=== PATIENT | female | born 1955 | race Caucasian/White ===

== ENCOUNTER 2020-05-02 09:54 | Outpatient (CLI) | payer OTHER, SELFPAY ==
[2020-05-02 10:59] LABS: Alanine Aminotransferase 31 U/L (4-35); Albumin Level 4.3 g/dL (3.5-5.1); Alkaline Phosphatase 95 U/L (38-126); Anion Gap 3 mmol/L (8-16); Aspartate Amino Transferase 28 U/L (14-36); Bilirubin,Total 0.7 mg/dL (0.2-1.3); Blood Urea Nitrogen 17 mg/dL (7-17); Calcium 9.2 mg/dL (8.4-10.2); Carbon Dioxide 34 mmol/L (22-30); Chloride 102 mmol/L (98-107); Cholesterol 203 mg/dL (0-200); Estimated Glomerular Filt Rate > 60; Glucose 140 mg/dL (65-105); HDL Direct 46 mg/dL; Potassium 4.2 mmol/L (3.4-5.0); Sodium 139 mmol/L (137-145); Triglycerides 269 mg/dL (<150)
[2020-05-02 11:10] LABS: LDL Cholesterol Direct 115 mg/dL
[2020-05-02 11:27] LABS: Thyroid Stimulating Hormone 0.786 uIU/mL (0.465-4.680)
== END 2020-05-02 09:55 | disposition home or self-care (01) ==
LOC: ANHLAB 09:56
PROVIDERS: PCP Internal Medicine; Visit Provider Internal Medicine
DX: E03.9 Hypothyroidism, unspecified (principal); Z51.81 Encounter for therapeutic drug level monitoring; Z79.899 Other long term (current) drug therapy; E78.5 Hyperlipidemia, unspecified; I10 Essential (primary) hypertension
CPT/HCPCS: 36415; 80053; 80061; 84443

== ENCOUNTER → 2020-07-03 15:09 | Outpatient (CLI) | payer OTHER, SELFPAY ==
--- NOTE | ~2020-07-03 | XR_ITS ---
XR knee LT 3V 07/03/2020 15:29 Indication: Left knee pain Procedure: 3 views left knee Comparison: No prior studies for comparison. Findings: Small joint effusion. No fracture or traumatic malalignment. No significant joint space sangeetha rowing. No foreign bodies. Impression: 1: Small joint effusion. Reviewed, dictated and finalized at location B. 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
== END ==
PROVIDERS: PCP Internal Medicine; Visit Provider Internal Medicine
DX: M25.462 Effusion, left knee (principal)
CPT/HCPCS: 73562

== ENCOUNTER 2020-08-07 11:00 | Outpatient (RCR) | payer OTHER, SELFPAY ==
--- NOTE | 2020-07-04 13:42 | PTOPEVAL ---
Thank you for referring Cailin Connor to [facility].? The patient is scheduled to be seen for therapy? 2 x/week for 5 weeks. Please review, sign, date and return this plan of care ERIN. I agree with and certify that the following plan of care is medically necessary. Referring Physician Date Attending Provider: Jonathan Garber DO Referring Provider: Jonathan Garber DO Evaluation Information Problem Diagnosis left knee pain Onset 3 wks Additional Evaluation Detail left last 2 digits numbness since Feb 2020 nerve conduction test sched for 07/07/20 Subjective Information She was going down the steps 3 Query Text:As Reported By Patient/ wks ago when she had knee Family pain. She is limited with walking longer distances, negotiating steps, and squating. She is unable to kneel on the knee due to pain. She c/o pain and sensation of knee giving out with descending steps. She does not perform a cardio program since COVID. She would do cardio of TM and eliptical, min upper body resistance activities. She would also perform some general stretching. She will take over the counter medication if needed. Denies use of ice or heat. 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 She notices she crosses her legs a lot. Diagnostic Tests X-Rays For This Problem Yes: mild fluid Pain Assessment Left Knee(s) Reported Pain Level 1 Pain Description Aching,Sharp Pain Frequency Continuous Lowest Pain Intensity 1 Greatest Pain Intensity 8 Lower Extremity Range of Motion Left Knee Flexion Range of Motion - Active 130 Knee Extension Range of Motion - Active -8 Query Text: Knee Range of Motion Comments right knee ext: -2 dg decreased left patellar inferior glide Lower Extremity Muscle Strength Testing Hip Strength Right Hip Flexion Strength 5 Normal Hip Extension Strength 4- Good - Hip Abduction Strength 3+ Fair + Left Hip Flexion Strength 5 Normal Hip Extension Strength
--- NOTE | 2020-08-04 10:13 | PCPTNOTE ---
Patient called & cancelled scheduled appointment this date due to not feeling well.
--- NOTE | 2020-08-07 11:49 | PTOPEVAL ---
Thank you for referring Cailin Connor to [facility].?Cailin has been seen for 10 therapy visits to address her leg impairments. She demonstrates improved pain, strength and tolerance with functional task. She has achieved her therapy goals at this time. She performs her home program indep and has returned to the gym for a fitness program.She will D/C from therapy services at this time. Please review, sign, date and return this discharge note ERIN. I agree with and certify that the following plan of care is medically necessary. Referring Physician Date Attending Provider: Jonathan Garber DO Referring Provider: Jonathan Garber DO Physical Therapy Discharge Note Diagnosis left knee pain Onset 3 wks Subjective Information She reports improved tolerance Query Text:As Reported By Patient/ with steps with only slight Family pain descending steps. She reports improved ability to tolerate squating, carrying or walking with only slight discomfort at time. She is now able to tolerate kneeling on the knee. She is not taking any over the counter medication for pain. She denies c/o sensation of knee giving out with descending steps. She has returned to the gym. She walked on the TM for 40 minutes. Pain Assessment Left Knee(s) Reported Pain Level 0 Pain Frequency Intermittent Lowest Pain Intensity 0 Greatest Pain Intensity 1 Lower Extremity Range of Motion Knee Range of Motion Left Knee Flexion Range of Motion - Active 132 Knee Extension Range of Motion - Active -6 Query Text: Knee Range of Motion Comments right knee ext: -2 dg decreased left patellar inferior/superior glide Lower Extremity Muscle Strength Testing Hip Strength Right Hip Flexion Strength 5 Normal Hip Extension Strength 4+ Good + Hip Abduction Strength 4- Good - Left Hip Flexion Strength 5 Normal Hip Extension Strength 4+ Good + Hip Abduction Strength 3+ Fair + Knee Strength Right Knee Flexion Strength 5 Normal Knee Extension Strength 5 Normal Left Knee Flexion Strength 5 Normal Knee Extension Strength 5 Normal Ankle Strength Bilateral Ankle Dorsiflexion Strength 5 Normal Ankle Plantarflexion Strength 4 Good Muscle Length Testing Two-Joint Hip Flexor Shortened Muscles Short (R) Iliopsoas,Short (L)
== END 2020-08-08 10:05 | disposition home or self-care (01) ==
LOC: ANHPT 11:00
PROVIDERS: PCP Internal Medicine; Referring Provider Internal Medicine; Visit Provider Internal Medicine
DX: M25.562 Pain in left knee (principal)
CPT/HCPCS: 97110; 97112; 97161

== ENCOUNTER 2022-10-13 00:06 | Day surgery (SDC) | payer MEDICARE, OTHER, SELFPAY ==
[2022-09-01 13:28] VITALS: BMI 23.5
[2022-09-30 10:40] VITALS: BMI 23.5
--- NOTE | 2022-10-12 16:26 | PM.HPGS ---
History of Present Illness History of Present Illness Consent: Risks, benefits, and alternatives have been discussed and questions answered. Patient agrees to proceed with procedure. Chief complaint: hx colon polyps Narrative: Cailin Connor is a 67 year old female For colon cancer screening. She has history of polyps. She had an unremarkable colonoscopy in 2008 Review of Systems Review of Systems: All systems reviewed & are unremarkable except as noted in HPI and below PMFSH Past Medical History Medical History Acquired hypothyroidism Benign essential hypertension Broken ankle GERD (gastroesophageal reflux disease) History of Graves' disease Hx of cold sores Hyperglycemia Impaired glucose tolerance Other and unspecified hyperlipidemia Postmenopausal Screening for breast cancer Surgical History Surgical History History of endometrial ablation Hx of thyroidectomy Family History Family History Father Cerebrovascular accident Acute myocardial infarction Mother Cerebrovascular accident Sibling Pancreas cancer Social History Social History Smoking packs per day: 0.5 Smoking cigarettes per day: 10.0 Years smoked: 40 Smoking pack-years: 20.00 Smoking status: Never smoker Second hand tobacco smoke exposure: No Smoking end date: 05/23/13 Alcohol intake: current Drinks per week: 5 Alcohol use details: social Substance use: never Substance use type: does not use Lack of Transportation: No Lack of Food: Never True Current Housing: I Have Housing Concerned About Future Housing: No Difficulty Paying Gas/Electric Bills: No Difficulty Paying for Meds: No Currently Unemployed: No Education: Trade/Vocational Certificate Difficulty w/ Childcare or Family Care: No Living arrangements: with family Gender identity (if verbalized by the patient): Female Spiritual care concerns: No Meds Home Medications and Allergies Home Medications Medication Instructions Recorded Confirmed Type atorvastatin 20 mg tablet 20 mg PO DAILY #90 tabs 05/04/22 09/01/22 Rx levothyroxine 75 mcg tablet 75 mcg PO DAILY #90 tabs 07/21/22 09/01/22 Rx valacyclovir 1 gram tablet See Rx Instructions .Route 08/10/22 09/01/22 Rx .COMPLEX #30 tabs cholecalciferol (vitamin D3) 50 250 mcg PO DAILY 09/01/22 09/01/22 History mcg (2,000 unit) tablet fluticasone propionate 50 2 spray intranasal DAILY PRN 09/01/22 09/01/22 History mcg/actuation nasal Allergy Symptoms spray,suspension (Flonase Allergy Relief) lisinopril 10 1 tablet PO DAILY 09/01/22 09/01/22 History mg-hydrochlorothiazide 12.5 mg tablet venlafaxine 150 mg 150 mg PO DAILY 09/01/22 09/01/22 History capsule,extended release 24 hr ketoconazole 2 % shampoo 1 applic topical 3XW scalp 10/08/22 10/08/22 Rx pruritis #120 mL Allergies Allergy/AdvReac Type Severity Reaction Status Date / Time No Known Allergies Allergy Verified 10/13/22 07:14 Exam Const: General: alert Orientation/consciousness: patient oriented x3 Resp: Auscultation: clear to auscultation bilaterally Cardio: Rhythm: regular rhythm GI: GI Palp: Yes Soft to palpation and No Tenderness to palpation present (GI) Neuro: General: patient oriented x3 Assessment and Plan Assessment and plan (1) Colon cancer screening: Code(s): Z12.11 - Encounter for screening for malignant neoplasm of colon Status: Acute Assessment and Plan: Colonoscopy with possible biopsy or polypectomy or cautery or injection of substances.
[2022-10-13 07:16] VITALS: BP 113/58; PULSE 78; RESP 20; TEMP 36.1; O2SAT 97
[2022-10-13] MEDS: LACTATED RINGERS 1,000 ML 150 ML IV CONT (07:28)
--- NOTE | 2022-10-13 08:13 | WPDANESEPPF ---
Anes - Initial Pre Proc Eval Procedure: Operation Date: 10/13/22 08:30 Proposed Procedures p Colonoscopy - Manoj Dick MD Date/Time: 10/13/22 08:13 Surgeon: Manoj Dick MD Pre Op Diagnosis: hx colon polyps Patient Data Age: 67 Gender: F Height: 1.57 m Weight: 57.1 kg Last Vital Signs Temp 97 F L 10/13/22 07:16 Pulse 78 10/13/22 07:16 Resp 20 10/13/22 07:16 BP 113/58 L 10/13/22 07:16 Pulse Ox 97 10/13/22 07:16 O2 Del Method Room Air 10/13/22 07:16 Allergies Allergy/AdvReac Type Severity Reaction Status Date / Time No Known Allergies Allergy Verified 10/13/22 07:14 Home Medications Medication Instructions Recorded Confirmed Type atorvastatin 20 mg tablet 20 mg PO DAILY #90 tabs 05/04/22 09/01/22 Rx levothyroxine 75 mcg tablet 75 mcg PO DAILY #90 tabs 07/21/22 09/01/22 Rx valacyclovir 1 gram tablet See Rx Instructions .Route 08/10/22 09/01/22 Rx .COMPLEX #30 tabs cholecalciferol (vitamin D3) 50 250 mcg PO DAILY 09/01/22 09/01/22 History mcg (2,000 unit) tablet fluticasone propionate 50 2 spray intranasal DAILY PRN 09/01/22 09/01/22 History mcg/actuation nasal Allergy Symptoms spray,suspension (Flonase Allergy Relief) lisinopril 10 1 tablet PO DAILY 09/01/22 09/01/22 History mg-hydrochlorothiazide 12.5 mg tablet venlafaxine 150 mg 150 mg PO DAILY 09/01/22 09/01/22 History capsule,extended release 24 hr ketoconazole 2 % shampoo 1 applic topical 3XW scalp 10/08/22 10/08/22 Rx pruritis #120 mL Patient hx anesthesia problems: none Family hx anesthesia problems: none Results Review: All pre-operative results and documents have been reviewed as part of the pre-operative evaluation. [facility] Past Medical History Medical History Acquired hypothyroidism Benign essential hypertension Broken ankle GERD (gastroesophageal reflux disease) History of Graves' disease Hx of cold sores Hyperglycemia Impaired glucose tolerance Other and unspecified hyperlipidemia Postmenopausal Screening for breast cancer Surgical History Surgical History History of endometrial ablation Hx of thyroidectomy Family History Family History Father Cerebrovascular accident Acute myocardial infarction Mother Cerebrovascular accident Sibling Pancreas cancer Social History Social History Smoking packs per day: 0.5 Smoking cigarettes per day: 10.0 Years smoked: 40 Smoking pack-years: 20.00 Smoking status: Never smoker Second hand tobacco smoke exposure: No Smoking end date: 05/23/13 Alcohol intake: current Drinks per week: 5 Alcohol use details: social Substance use: never Substance use type: does not use Lack of Transportation: No Lack of Food: Never True Current Housing: I Have Housing Concerned About Future Housing: No Difficulty Paying Gas/Electric Bills: No Difficulty Paying for Meds: No Currently Unemployed: No Education: Trade/Vocational Certificate Difficulty w/ Childcare or Family Care: No Living arrangements: with family Gender identity (if verbalized by the patient): Female Spiritual care concerns: No Anes - Eval Final PreProcedure Day of Procedure 10/13/22 08:13 Patient weight: normal Heart: regular rate and rhythm Lungs: clear to auscultation Airway: Mallampati scale class II Neurological: alert and oriented Last oral intake: >/= 8 hours ASA classification: II Emergent: no Anesthetic plan: proceed Anesthesia type and monitoring: general GIVS and standard monitoring Results Review: All pre-operative results and documents have been reviewed as part of the pre-operative evaluation. Informed Consent: The patient's anesthetic plan and its attendant risks and benefits w
[2022-10-13 08:37] VITALS: BP 90/50; PULSE 71; RESP 22; O2SAT 97
[2022-10-13 08:47] VITALS: BP 93/56; PULSE 72; RESP 23; O2SAT 98
[2022-10-13 08:57] VITALS: BP 102/63; PULSE 70; RESP 20; O2SAT 98
== END 2022-10-13 09:04 | disposition home or self-care (01) ==
PROVIDERS: PCP Family Medicine; Visit Provider Internal Medicine Gastroenterology
PROC: 0DJD8ZZ Inspection of Lower Intestinal Tract, Via Natural or Artificial Opening Endoscopic (ICD-10-PCS; CPT 45378; principal; 2022-10-13 08:30)
DX: Z12.11 Encounter for screening for malignant neoplasm of colon (principal); Z86.010 Personal history of colon polyps; K57.30 Diverticulosis of large intestine without perforation or abscess without bleeding; E03.9 Hypothyroidism, unspecified; K21.9 Gastro-esophageal reflux disease without esophagitis; E78.49 Other hyperlipidemia
CPT/HCPCS: G0105; J2704; J7120

== ENCOUNTER 2024-07-20 12:58 | Outpatient (CLI) | payer MEDICARE, OTHER, SELFPAY ==
--- OUTSIDE RECORDS SUMMARY | 2024-07-20 13:19 | XMS_ITS | CONTINUITY OF CARE DOCUMENT ---
Author Name candelaria gaona Address Unknown Organization [facility] Address [id number] [place] [address] [address] [place] [address] Phone [phone] Care Team Providers Care Commercial Lines Account Manager Name Role Phone candelaria gaona Unavailable Unavailable
--- OUTSIDE RECORDS SUMMARY | 2024-07-20 13:19 | XMS_ITS | Clinical Summary ---
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 Gender Identity Not on file Sexual Orientation Not on file Plan of Treatment Health Maintenance Due Date Last Done Comments Colorectal Cancer Screening Colonoscopy (10 Years) 1957 Hepatitis C 1975 DTaP, Tdap and Td Vaccines ( 1 - Tdap) 1976 Mammogram Screening 1997 Zoster Vaccines (1 of 2) 2007 Dexa Scan (General) 2022 Pneumococcal Vaccine: 65+ Years (1 of 1 - PCV) 2022 COVID-19 Vaccine (3 - 2023-2 5 season) 2024 07/01/2020, 06/03/2020 Influenza Adult (#1) 2024 RSV Immunization or 60+ Years (1 - 1-dose 75+ series) 2032 Meningococcal B Vaccine Aged Out No l onger eligible based on patient's age to complete this topic Meningococcal Vaccine Aged Out No sd trey eligible based on patient's age to complete this topic RSV Immunizations Under 20 Months Aged Out No longer eligible b ased on patient's age to complete this topic 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
--- OUTSIDE RECORDS SUMMARY | 2024-07-20 13:19 | XMS_ITS | Continuity of Care Document ---
Author Organization [facility] Address [address] [place] [address] [address] [place] [address] Phone Care Team Providers Care Hourly Caregiver Name Role Phone Oziel Pettit Unavailable Unavailable Advance Directives Directive Yes / No Effective Date File Name No Information Encounters Encounter Description Practice Location Reason(s) For Visit Diagnoses Date Provider Providers Copied on Encounter Located within [facility], [address] [place] [address] [address], [place], [place], [id number], [place] tel:[phone] [facility] No Information Mar-0 8-200 5 Wilver Ludwig. [address] [place], [place] [address]ate [place] , [facility], [place], [place], [facility], [place]. tel:[phone] Referring Provider: Yuniel Morel [address] Andrzej Garcia [facility], [place], [place], [facility]. tel:[phone] Family History Family Member Type Diagnosis Age At Onset No Information Payers Payer name Insurance type Covered libertarian ID Authoriza tion(s) No Information Social History Type Description Quantity Date Captured Comments Sex Female Smoking Status No Information Chief Complaint And Reason For Visit No Information Reason For Referral Reason For Referral No Information History Of Present Illness Encounter Date Complaint History Of Prese nt Illness No Information Functional Status Date Functional Assessmen t No Information Instructions Date Instruction Additional Infor mation No Information Assessments Type Assessment Date No Information Patient Care Teams Name Effective Dates (start - stop) Status Members No Information
== END 2024-07-20 12:59 | disposition home or self-care (01) ==
LOC: ANHAUDASC 12:59
PROVIDERS: PCP Family Medicine; Visit Provider Family Medicine
DX: H90.3 Sensorineural hearing loss, bilateral (principal); H93.13 Tinnitus, bilateral
CPT/HCPCS: 92557; 92567